=== PATIENT | male | born 2000 ===

== ENCOUNTER 2025-01-23 12:56 | Outpatient (AMB) | payer OTHER, SELFPAY ==
--- NOTE | 2025-01-22 14:05 | A.OFFPC_ITS ---
Vital Signs 01/23/25 13:10 Height 5 ft 8 in Weight 213 lb 4 oz BMI 32.4 BP 120/76 Blood Pressure Location Lt brachial Position Sitting Pulse 81 Pulse Source Pulse Oximeter Temp 97.7 F Temp Source Temporal Artery Scan Pulse Oximetry (%) 98 Oxygen Delivery Method Room Air Intake Visit Reasons: ED F/U Km General Claims Agent Required: No Accompanied by: Self / Same As Patient Allergies No Known Allergies Allergy (Verified 01/23/25 13:13) Medication List - Last Reconciled 02/04/25 by MIKEY Oneill cetirizine 10 mg PO DAILY doxycycline hyclate 100 mg PO BID famotidine 20 mg PO BID PRN pantoprazole 40 mg PO DAILY Tobacco use date assessed: 01/23/25 Dental Screening Dental Screen Date: 01/23/25 Did you have a dental visit in the last 12 months?: No Did you have a dental problem in the last 6 months where you did not have access to dental care?: No HPI HPI Comments History of Present Illness Details The patient is a 24-year-old male without significant PMH presenting as a new patient with a spider bite and subsequent wound infection. The incident occurred on a Wednesday night, with the patient noticing a bump on Wednesday morning. Initially, the condition seemed to improve throughout the day but worsened by the evening. The patient sought medical attention at [facility], where the wound was opened and a wick was placed to facilitate drainage. The patient was prescribed doxycycline for 14 days to manage the infection. The wound is located on the shoulder blade and spine area, and the patient reports tenderness in the region. The patient has been changing the dressing regularly and reports minimal drainage from the wound. There are no significant signs of infection currently, and the wound is expected to heal as long as it remains covered and the antibiotic course is completed. Patient was being seen prior at [facility]. Patient has been taking Pantopr azole and Famotidine and needs a refill [facility] Medical History (Updated 02/04/25 @ 23:29 by MIKEY Oneill) GERD (gastroesophageal reflux disease) MDD (major depressive disorder), recurrent episode, mild Obesity (BMI 30.0-34.9) Spider bite Family History (Updated 01/23/25 @ 13:15 by Maria Teresa Hudson MA) Mother No problems noted. Father No problems noted. Social History Housing: House Patient Tobacco Use Status: Never used Tobacco e-Cigarette/Vaping Use: Never Used service: No Current occupational status: unemployed Cognitive needs: No Hearing needs: No Vision needs: No Questionnaire PHQ-9 Over the last 2 weeks, how often have you been bothered by any of the following problems? 1. Little interest or pleasure in doing things: not at all 2. Feeling down, depressed, or hopeless: several days 3. Trouble falling or staying asleep, or sleeping too much: nearly every day (trouble falling asleep) 4. Feeling tired or having little energy: several days 5. Poor appetite or overeating: nearly every day (poor apepetite since he's been having the gerd) 6. Feeling bad about yourself - or that you are a failure or have let yourself or your family down: not at all 7. Trouble concentrating on things, such as reading the newspaper or watching television: not at all 8. Moving or speaking so slowly that other people could have noticed. Or the opposite - being so fidgety or restless that you have been moving around a lot more than usual: not at all 9. Thoughts that you would be better off or of hurting yourself in some way: not at all Total score: 8 Depression Screening Interpretation: Positive Depression Screening Follow-up: Follow-up Visit Requested Depression Screening Done: Yes Source: Developed by Drs. Otis Palmer, Peggy Kaminski, Panchito Ventura and colleagues, with an educational eliot from [employer] Thrive Questionnaire Date Thrive assessed: 01/23/25 I am a: Patient Within the past 12 months, did the food you bought not last and you didn't have the money to get more?: Never true Within the past 12 months, did you worry whether your food would run out before you got money to buy more?: Never true Do you have trouble paying for medicines?: No Do you have trouble getting transportation to medical appointments?: No Do you have trouble paying your heating and electricity bill?: No Do you have trouble taking care of your child, family member or friend?: No Do you have trouble with day-to-day activities such as bathing, preparing meals, shopping, managing finances, etc.?: No Are you currently unemployed and looking for a job?: No Are you interested in more education?: No THRIVE Score: 0 AUDIT C Alcohol Use Questionnaire (AUDIT-C) 1. How often do you have a drink containing alcohol?: Monthly or less 2. How many drinks containing alcohol do you have on a typical day when you are drinking?: 1 or 2 3. How often do you have six or more drinks on one occasion?: Less than monthly Total Score: 2 LINDSAY-7 AMB Questionnaire LINDSAY-7 Date LINDSAY - 7 assessed: 01/23/25 Feeling nervous, anxious, or on edge: 1 = Several days Not being able to stop or control worryin = Not at all Worrying too much about different things: 0 = Not at all Trouble relaxin = Not at all Being so restless that it is hard to sit still: 0 = Not at all Becoming easily annoyed or irritable: 0 = Not at all Feeling afraid as if something awful might happen: 0 = Not at all Total LINDSAY-7 score (0-4 normal; 5-9 mild; 10-14 moderate; 15-21 severe): 1 Source: Developed by Drs. Otis Palmer, Peggy Kaminski, Panchito Ventura and colleagues, with an educational eliot from [employer] Review of Systems Const Details: CONSTITUTIONAL No fever HEAD/NECK Negative RESPIRATORY Negative CARDIOVASCULAR Negative MUSCULOSKELETAL joint pains SKIN spider bite on posterior left shoulder NEUROLOGICAL Negative PSYCHIATRIC depression symptoms Physical exam (Primary Care) Vital Signs: Last Vital Signs Temp 97.7 F 01/23/25 13:10 Pulse 81 01/23/25 13:10 BP 120/76 01/23/25 13:10 Pulse Ox 98 01/23/25 13:10 Oxygen Delivery Method Room Air 01/23/25 13:10 BMI result Body Mass Index 32.4 GENERAL Well developed, obese, in no apparent distress HEENT Head-Normocephalic Neck- Supple, No lymphadenopathy, thyroid WNL RESPIRATORY Normal I:E, Clear to auscultation CARDIOVASCULAR Regular, rate and rhythm, No murmurs or rubs MUSCULOSKELETAL Joints- no swelling or deformity SKIN abscess on posterior left shoulder-wick removed. no drainage. NEUROLOGICAL Gait normal PSYCHIATRIC Oriented to person, place and time Mood and affect depressed Appearance WNL Speech WNL Thought processes WNL Tobacco/Smoking Status: Tobacco use Status Tobacco use date assessed 01/23/25 01/22/25 14:07 Patient Tobacco Use Status Never used Tobacco 01/22/25 14:07 e-Cigarette/Vaping Use Never Used 01/22/25 14:07 PHQ-9: PHQ-9 Score PHQ-9: Total score 8 01/23/25 13:17 Depression Screening Interpretation: Positive Depression Screening Follow-up: Follow-up Visit Requested Thrive Assessment: Date of Thrive Assessment Date Thrive assessed 01/23/25 01/22/25 14:07 Coding Level of Care Code New Pt New Pt Level 4 (91823) Patient Type New Diagnoses Spider bite T63.301A MDD (major depressive disorder), recurrent episode, mild F33.0 Obesity (BMI 30.0-34.9) E66.9 Gastroesophageal reflux disease without esophagitis K21.9 Esophagitis presence: without esophagitis Time Spent (min) 30 Comment Time spent on chart review, medication reconciliation, H&P, dressing change, patient ed Assessment & Plan Assessment & Plan (1) Spider bite: Code(s): T63.301A - Toxic effect of unspecified spider venom, accidental (unintentional), initial encounter Category: Medical Plan: The patient was advised to keep the wound covered and to complete the full course of doxycycline to prevent further infection. Follow-up in two months was recommended to assess healing and ensure no complications arise. (2) MDD (major depressive disorder), recurrent episode, mild: Code(s): F33.0 - Major depressive disorder, recurrent, mild Category: Medical Plan: Patient is connected with a counselor. Patient to follow up in 8 weeks or sooner if symptoms persist or worsen. (3) Obesity (BMI 30.0-34.9): Comment: BMI today was 32.4 Code(s): E66.9 - Obesity, unspecified Category: Medical Plan: Discussed the health risks of obesity with the patient. Reviewed benefits of e penelope moderate weight loss with the patient. Patient will gradually try and increase exercise to 30-40 min 5-7 times per week. We discussed they may need to break the exercise up into 2-3 sessions daily due to joint pain. We discussed the patient adding more fruits and vegetables to their diet. Will monitor weight and follow up in 8 weeks. (4) GERD (gastroesophageal reflux disease): Code(s): K21.9 - Gastro-esophageal reflux disease without esophagitis Category: Medical Qualifiers: Esophagitis presence: without esophagitis Qualified Code(s): K21.9 - Gastro-esophageal reflux disease without esophagitis Plan: Will refill Pantoprazole and Famotidine. Patient to follow up in 8 weeks or sooner if symptoms persist or worsen. Plan I discussed with the patient the importance of completing the doxycycline course to prevent further infection and advised keeping the wound covered until it heals completely. We also talked about the need for a follow-up appointment in two months to monitor the wound's healing progress and ensure no complications arise. Medications: New pantoprazole 40 mg PO DAILY 90 tabs 1RF for acid famotidine 20 mg PO BID PRN 180 tabs 1RF indigestion Patient Instructions: - Keep the wound covered until it heals completely. - Complete the full course of doxycycline as prescribed. - Change the dressing regularly and monitor for signs of swelling or redness. - Schedule a follow-up appointment in two months.
[2025-01-23 13:10] VITALS: BP 120/76; PULSE 81; TEMP 36.5; O2SAT 98; BMI 32.4
--- OUTSIDE RECORDS SUMMARY | 2025-01-23 15:38 | XMS_ITS ---
Author Name [facility] Organization Unknown Encounters Encounter Type Encounter Reason Primary Diagnosis Location Date Emergency QUESTION OF ABSCESS ON STOMACH QUESTION OF ABSCESS ON STOMACH [facility] 02/29/2024 Care Team Organization Name Specialty Phone Email Start Date End Da te [facility] remember,Patient Primary Care 03/27/20242024 [facility] Patient remember Primary Care 02/29/2024
== END 2025-01-23 13:31 | disposition home or self-care (01) ==
LOC: HO.HMCHD 12:56
PROVIDERS: PCP Physician Assistant Medical; Visit Provider Physician Assistant Medical
DX: T63.301A Toxic effect of unspecified spider venom, accidental (unintentional), initial encounter (principal); F33.0 Major depressive disorder, recurrent, mild; E66.9 Obesity, unspecified; K21.9 Gastro-esophageal reflux disease without esophagitis

== ENCOUNTER → 2025-01-23 12:56 | Outpatient (BNVA) | payer OTHER, SELFPAY | PROVIDERS: PCP Physician Assistant; Visit Provider Physician Assistant Medical | DX: Z09 Encounter for follow-up examination after completed treatment for conditions other than malignant neoplasm (principal); F33.0 Major depressive disorder, recurrent, mild; K21.9 Gastro-esophageal reflux disease without esophagitis; E66.9 Obesity, unspecified; T63.301A Toxic effect of unspecified spider venom, accidental (unintentional), initial encounter | CPT/HCPCS: 99202 ==

== ENCOUNTER 2025-02-13 15:27 | Outpatient (AMB) | payer OTHER, SELFPAY ==
--- NOTE | 2025-02-13 15:33 | A.OFFPC_ITS ---
Vital Signs 02/13/25 15:34 Height 5 ft 8 in Weight 207 lb 4 oz BMI 31.5 BP 126/82 Blood Pressure Location Rt brachial Position Sitting Pulse 96 Pulse Source Pulse Oximeter Temp 97.4 F Temp Source Temporal Artery Scan Pulse Oximetry (%) 98 Oxygen Delivery Method Room Air Intake Visit Reasons: Acid reflux Straddle Truck Driver Required: No Accompanied by: Self / Same As Patient Allergies No Known Allergies Allergy (Verified 02/13/25 15:34) Medication List - Last Reconciled 02/13/25 by MIKEY Oneill famotidine 20 mg PO BID PRN levocetirizine 5 mg PO DAILY pantoprazole 40 mg PO DAILY Tobacco use date assessed: 02/13/25 Dental Screening Dental Screen Date: 02/13/25 Did you have a dental visit in the last 12 months?: No Did you have a dental problem in the last 6 months where you did not have access to dental care?: No HPI HPI Comments History of Present Illness Details The patient is a 24-year-old male with GERD, MDD/Anxiety, AR adn obesity presenting for evaluation of persistent acid reflux symptoms and a request for referrals. He reports experiencing acid reflux since late October or early December, which is no longer controlled by his Pantoprazole and Famotidine. His symptoms have progressed to mainly affect his throat, causing a globus sensation, dryness, increased saliva, and esophageal spasms with very hot or cold liquids. Associated symptoms include trapped gas, abdominal pain and intermittent diarrhea. He has also recently experienced episodes where his face becomes hot with red, non-pruritic blotches on the forehead that spread and become itchy elsewhere, accompanied by a burning sensation and facial tightness. He denies a history of eczema as a baby but recalls a similar issue affecting his ears a couple of years ago. For allergies, the patient has been taking cetirizine since last year and has recently developed sinus pressure without rhinorrhea. A previous wound, spider bite on posterior shoulder has healed well, leaving some residual hyperpigmentation, and is not draining. Medical History: - Acid reflux, since approximately . - Allergic rhinitis - History of rash on ears a few years pr ior. [facility] Medical History (Updated 02/13/25 @ 16:30 by MIKEY Oneill) Abdominal pain Allergic rhinitis Anxiety GERD (gastroesophageal reflux disease) MDD (major depressive disorder), recurrent episode, mild Obesity (BMI 30.0-34.9) Spider bite Thyromegaly Family History Mother No problems noted. Father No problems noted. Social History Housing: House Patient Tobacco Use Status: Never used Tobacco e-Cigarette/Vaping Use: Never Used service: No Current occupational status: unemployed Cognitive needs: No Hearing needs: No Vision needs: No Questionnaire PHQ-9 Over the last 2 weeks, how often have you been bothered by any of the following problems? 1. Little interest or pleasure in doing things: not at all 2. Feeling down, depressed, or hopeless: nearly every day (anxiety is daily) 3. Trouble falling or staying asleep, or sleeping too much: not at all 4. Feeling tired or having little energy: not at all 5. Poor appetite or overeating: several days (poor appetite) 6. Feeling bad about yourself - or that you are a failure or have let yourself or your family down: not at all 7. Trouble concentrating on things, such as reading the newspaper or watching television: not at all 8. Moving or speaking so slowly that other people could have noticed. Or the opposite - being so fidgety or restless that you have been moving around a lot more than usual: not at all 9. Thoughts that you would be better off or of hurting yourself in some way: not at all Total score: 4 Depression Screening Interpretation: Negative (Patient would like referral for counseling) Depression Screening Done: Yes Source: Developed by Drs. Otis Palmer, Peggy Kaminski, Panchito Ventura and colleagues, with an educational eliot from [employer]. Thrive Questionnaire Date Thrive assessed: 02/13/25 I am a: Patient Within the past 12 months, did the food you bought not last and you didn't have the money to get more?: Never true Within the past 12 months, did you worry whether your food would run out before you got money to buy more?: Never true Do you have trouble paying for medicines?: No Do you have trouble getting transportation to medical appointments?: No Do you have trouble paying your heating and electricity bill?: No Do you have trouble taking care of your child, family member or friend?: No Do you have trouble with day-to-day activities such as bathing, preparing meals, shopping, managing finances, etc.?: No Are you currently unemployed and looking for a job?: No Are you interested in more education?: No THRIVE Score: 0 AUDIT C Alcohol Use Questionnaire (AUDIT-C) 1. How often do you have a drink containing alcohol?: Never 3. How often do you have six or more drinks on one occasion?: Never Total Score: 0 LINDSAY-7 AMB Questionnaire LINDSAY-7 Date LINDSAY - 7 assessed: 02/13/25 Feeling nervous, anxious, or on edge: 3 = Nearly every day Not being able to stop or control worryin = Not at all Worrying too much about different things: 1 = Several days Trouble relaxin = Not at all Being so restless that it is hard to sit still: 0 = Not at all Becoming easily annoyed or irritable: 0 = Not at all Feeling afraid as if something awful might happen: 0 = Not at all Total LINDSAY-7 score (0-4 normal; 5-9 mild; 10-14 moderate; 15-21 severe): 4 Source: Developed by Drs. Otis Palmer, Peggy Kaminski, Panchito Ventura and colleagues, with an educational eliot from [employer]. Review of Systems Narrative - General: Denies fever. - HEENT: Reports a sensation of a lump in his throat, dry throat, and sinus pressure. - Denies rhinorrhea. - Skin: Reports recent onset of facial flushing with hot, red, and sometimes itchy blotches on his forehead and face. - Respiratory: Reports feeling short of breath, especially when talking. - Gastrointestinal: Reports acid reflux, abdominal pain, trapped gas, and diarrhea. - Reports esophageal spasm with very hot or cold liquids. Physical exam (Primary Care) Vital Signs: Last Vital Signs Temp 97.4 F 02/13/25 15:34 Pulse 96 02/13/25 15:34 BP 126/82 02/13/25 15:34 Pulse Ox 98 02/13/25 15:34 Oxygen Delivery Method Room Air 02/13/25 15:34 BMI result Body Mass Index 31.5 GENERAL Well developed, obese, in no apparent distress HEENT Head-Normocephalic Eyes- PERRLA, EOMI, Conjuctiva clear, lids WNL Ears- Canals clear, TMs WNL Mouth/Throat-fullness in throat Neck- Supple, No lymphadenopathy, thyroid enlarged, no nodules RESPIRATORY Normal I:E, Clear to auscultation CARDIOVASCULAR Regular, rate and rhythm, No murmurs or rubs GASTROINTESTINAL Soft, nontender, normal bowel sounds, no masses NEUROLOGICAL Gait normal PSYCHIATRIC Oriented to person, place and time Mood and affect- Depressed and anxious Appearance WNL Speech WNL Thought processes WNL Tobacco/Smoking Status: Tobacco use Status Tobacco use date assessed 02/13/25 02/13/25 15:35 Patient Tobacco Use Status Never used Tobacco 02/13/25 15:35 e-Cigarette/Vaping Use Never Used 02/13/25 15:35 PHQ-9: PHQ-9 Score PHQ-9: Total score 4 02/13/25 15:42 Depression Screening Interpretation: Negative (Patient would like referral for counseling) Thrive Assessment: Date of Thrive Assessment Date Thrive assessed 02/13/25 02/13/25 15:35 Coding Level of Care Code Established Pt Est Pt Level 4 (50662) Patient Type Established Diagnoses Gastroesophageal reflux disease without esophagitis K21.9 Esophagitis presence: without esophagitis Thyromegaly E01.0 Allergic rhinitis J30.9 MDD (major depressive disorder), recurrent episode, mild F33.0 Anxiety F41.9 Obesity (BMI 30.0-34.9) E66.9 Time Spent (min) 35 Comment Time spent on H&P, medication reconciliation, patient education and orders Assessment & Plan Assessment & Plan (1) GERD (gastroesophageal reflux disease): Code(s): K21.9 - Gastro-esophageal reflux disease without esophagitis Category: Medical Qualifiers: Esophagitis presence: without esophagitis Qualified Code(s): K21.9 - Gastro-esophageal reflux disease without esophagitis Plan: To further evaluate the patient's reflux symptoms, a referral will be placed to gastroenterology. It is anticipated that an endoscopy will be required to assess the esophagus. Patient will continue current medications. Will monitor. Patient will follow up in 6 weeks (2) Thyromegaly: Code(s): E01.0 - Iodine-deficiency related diffuse (endemic) goiter Category: Medical Plan: Due to the finding of an enlarged thyroid, which could be contributing to the patient's throat symptoms and shortness of breath, further investigation is warranted. An order will be placed for general blood work, including thyroid function tests and a complete blood count. A request for a thyroid ultrasound will also be submitted to radiology for further visualization. A referral to an petroleum refining equipment operator is not indicated at this time, pending the results of this workup. Patient to follow up in 6 weeks or sooner if symptoms persist or worsen. (3) Allergic rhinitis: Code(s): J30.9 - Allergic rhinitis, unspecified Category: Medical Plan: As long-term use of the same antihistamine can lead to decreased efficacy, the patient's current medication, cetirizine, will be changed. A new prescription for levocetirizine will be sent to the pharmacy to trial for better management of potential allergy symptoms. Patient to follow up in 6 weeks or sooner if symptoms persist or worsen. (4) MDD (major depressive disorder), recurrent episode, mild: Code(s): F33.0 - Major depressive disorder, recurrent, mild Category: Medical Plan: Will refer for counseling (5) Anxiety: Code(s): F41.9 - Anxiety disorder, unspecified Category: Medical Plan: Will refer for counseling. (6) Obesity (BMI 30.0-34.9): Comment: BMI today was 31.5 Code(s): E66.9 - Obesity, unspecified Category: Medical Plan: Discussed the health risks of obesity with the patient. Reviewed benefits of even moderate weight loss with the patient. Patient will gradually try and increase exercise to 30-40 min 5-7 times per week. We discussed the patient adding more fruits and vegetables to their diet. Will monitor weight and follow up in 3 months. Plan I have explained to the patient the plan to investigate his multiple symptoms. We will proceed with a referral to Gastroenterology for his reflux, as he will likely need an endoscopy. I ordered a thyroid ultrasound and blood work to assess his enlarged thyroid, as this could be the cause of his throat symptoms and shortness of breath, and may lead to a referral to Endocrinology. I advised holding off on an ENT referral for now. We also discussed changing his allergy medication to levocetirizine for better symptom control. A follow-up appointment is recommended in six weeks to review results and progress. Orders: Orders Comprehensive Met. Panel Today R10.9 - Unspecified abdominal pain TSH reflex Free T4 Today E01.0 - Iodine-deficiency related diffuse (endemic) goiter US thyroid Today E01.0 - Iodine-deficiency related diffuse (endemic) goiter Complete Blood Count no Diff Today E66.9 - Obesity, unspecified, F41.9 - Anxiety disorder, unspecified, J02.9 - Acute pharyngitis, unspecified Referrals Gastroenterology Referral K21.9 - Gastro-esophageal reflux disease without esophagitis Medications: New levocetirizine 5 mg PO DAILY 90 tabs 1RF for allergies Patient Instructions: - Go to the hospital to have your blood work done. - Radiology will call you to schedule your thyroid ultrasound. - The plastic parts fabricator trimmer's office will call you to schedule an appointment. - A new prescription for an allergy medication called levocetirizine will be sent to your pharmacy. - Please book a follow-up appointment at the front desk monitor for about six weeks from now.
[2025-02-13 15:34] VITALS: BP 126/82; PULSE 96; TEMP 36.3; O2SAT 98; BMI 31.5
--- OUTSIDE RECORDS SUMMARY | 2025-02-13 18:12 | XMS_ITS | Clinical Summary ---
Author Organization [facility] Address [address] [place] [address] Care Team Providers Care Air Hammer Operator Name Role Phone Marii Campos PA-C Primary Care Provider Source Comments PLEASE NOTE, if this patient is a minor, it may be UNLAWFUL to discuss sensitive information that is contained in these records (such as FAMILY PLANNING, MENTAL HEALTH or SUBSTANCE ABUSE) with the minor patient's parent or other person without the patient's specific authorization.[facility] Allergies No known active allergies Medications pantoprazole (PROTONIX) 20 mg EC tabletIndicatio ns:Epigastric pain Take 20 mg by mouth once daily. 5 Active famotidine (PEPCID) 20 mg tabletIndicatio ns:Epigastric pain TAKE 1 TABLET BY MOUTH TWICE A DAY NEEDED FOR INDIGESTION 5 Active lansoprazole (PREVACID) [address] capsuleIndicati ons:Epigastric pain Take 1 Capsule by mouth 2 (two) times daily. 180 Capsule 1 5 Active Active Problems No known active problems Encounters Date Type Department Care Team Description 12/30/2024 10:40 AM EDT Office Visit [address] [phone] Marii Campos PA-C from Last 3 Months Social History Tobacco Use Types Packs/Day Years Used Date Smoking Tobacco: Never Passive Smoke Exposure: Never Smokeless Tobacco: Never Tobacco Cessation:Counseling Given: Yes Sex and Gender Information Value Date Recorded Sex Assigned at Male 12/30/2024 7:40 AM PDT Legal Sex Male 7:06 AM PDT Gender Identity Male 12/30/2024 7:40 AM PDT Sexual Orientation Straight 12/30/2024 7: 40 AM PDT Last Filed Vital Signs Vital Sign Reading Time Taken Comments Blood Pressure 128/86 12/30/2024 10:39 AM EDT Pulse 73 12/30/2024 10:39 AM EDT Temperature 37.2 C (98.9 F) 12/30/2024 10:39 AM EDT Respiratory Rate 18 12/30/2024 10:39 AM EDT Oxygen Saturation - - Inhaled Oxygen Concentration - - Weight 99.3 kg (219 lb) 12/30/2024 10:39 AM EDT Height 170.2 cm (5' 7 ) 12/30/2024 10:39 AM EDT Body Mass Index 34.3 12/30/2024 10:39 AM EDT Plan of Treatment Health Maintenance Due Date Last Done Comments Anxiety Screening 2000 HIV Screening 2015 Medicare Annual Wellness Visit 2018 Imm-DTaP/Tdap/Td (7 - Td or Tdap) 06/22/2022 06/22/2012, 02/26/2006, 07/02/2004, Additional history exists Alcohol and Drug Screen 04/12/2024 Depression Annual Screen 04/12/2024 [id number] ( season) 12/11/20242 021, 10/15/2020 Imm-Influenza (#1) 2024 02/18/2021, 1 04/18/2016, 01/09/2014, Additional history exists Hypertension Screening (#1) 12/30/2025 Tobacco Screening 12/30/2025 12/30/2024 Diabetes Screening 01/03/2026 01/03/2025, 0 09/14/2024, 02/02/2024 Lipid Screening 01/04/2028 01/03/2025, 09/14/2024 Imm-Hepatitis B Completed 08/01/2001, 04/2000, 2000 Imm-Varicella Completed 05/25/2008, 08/02/2001 Imm-HPV Completed 03/13/2016, 12/13, 06/22/2012 Hepatitis C Screening Completed 01/03/2025 Procedures Procedure Name Priority Date/Time Associated Diagnosis Comments ASSAY OF LIPASE Routine 01/03/2025 9:55 AM EDT Epigastric pain Early satiety Unintended weight loss Functional diarrhea ASSAY OF AMYLASE Routine 01/03/2025 9:55 AM EDT Epigastric pain Early satiety Unintended weight loss Functional diarrhea H PYLORI UREA BREATH TEST Routine 01/03/2025 9:55 AM EDT Epigastric pain Early satiety Unintended weight loss Functional diarrhea HEPATITIS B SURFACE AG, EIA WITH REFLEX CONFIRM Routine 01/03/2025 9:55 AM EDT Epigastric pain Early satiety Unintended weight loss Functional diarrhea HEPATITIS C AB W/RFLX HCV RNA, QT, RT PCR Routine 01/03/2025 9:55 AM EDT Epigastric pain Early satiety Unintended weight loss Functional diarrhea BLOOD COUNT COMPLETE AUTO&AUTO DIFRNTL WBC Routine 01/03/2025 9:55 AM EDT Epigastric pain Early satiety Unintended weight loss Functional diarrhea COMPREHENSIVE METABOLIC PANEL Routine 01/03/2025 9:55 AM EDT Epigastric pain Early satiety Unintended weight loss Functional diarrhea LIPID PANEL Routine 01/03/2025 9:55 AM EDT Epigastric pain Early satiety Unintended weight loss Functional diarrhea TSH W/RFLX FREE T4 Routine 01/03/2025 9: 55 AM EDT Epigastric pain Early satiety Unintended weight loss Functional diarrhea from Last 3 Months Results * HEPATITIS C AB W/RFLX HCV RNA, QT, RT PCR Routine (01/03/2025 9:55 AM EDT) HEPATITIS C ANTIBODY NON-REACT RICHARD NON-REACT RICHARD 01/04/2025 6:35 PM EDT [facility] Blood Blood / Unknown 01/03/2025 9 :55 AM EDT 01/04/2025 5:00 PM EDT Narrative [facility] - 01/04/2025 6:47 PM EDT FASTING:YES . HCV antibody was non-reactive. There is no laboratory evidence of HCV infection. . In most cases, no further action is required. However, if recent HCV exposure is suspected, a test for HCV RNA (test code 27368) is suggested. . For additional information please refer to http://Flowdock.Preo/faq/YHU60c3 (This link is being provided for informational/ educational purposes only.) . Marii JENSEN-C LAB - BLOOD DRAW Final Resul t Performing Organization Address [facility] Co de Phone Number [employer] [address] [place] [address], [employer] [address] * TSH W/RFLX FREE T4 Routine (01/03/2025 9:55 AM EDT) TSH W/REFLEX TO FT4 4.49 0.40 - 4.50 mIU/L 01/04/2025 6:20 PM EDT [employer] [facility] Blood Blood / Unknown 01/03/2025 9 :55 AM EDT 01/04/2025 5:00 PM EDT Narrative [employer] - 01/04/2025 6:24 PM EDT FASTING:YES Marii Andres JENSEN-C LAB - BLOOD DRAW Final Resul t Performing Organization Address [facility] de Phone Number [employer] [address] [place] [address], [address] [address] * HEPATITIS B SURFACE AG, EIA WITH REFLEX CONFIRM Routine (01/03/2025 9:55 AM EDT) HEPATITIS B SURFACE ANTIGEN NON-REACT RICHARD NON-REACT RICHARD 01/06/2025 10:02 PM EDT [facility] Blood Blood / Unknown 01/03/2025 9 :55 AM EDT 01/04/2025 5:00 PM EDT Narrative [employer] - 01/06/2025 10:10 PM EDT FASTING:YES . For additional information, please refer to http://Flowdock.Preo/faq/BYM019 (This link is being provided for informational/ educational purposes only.) . us Marii Campos PA-C LAB - BLOOD DRAW Final Resul t [employer] [facility] [address] [address], [facility] [address] [place] [address] * (ABNORMAL) BLOOD COUNT COMPLETE AUTO&AUTO DIFRNTL WBC Routine (01/03/2025 9:55 AM EDT) [facility] WHITE BLOOD CELL COUNT 10.8 3.8 - 10.8 Thousand/ uL 01/04/2025 7:32 AM EDT [facility] RED BLOOD CELL COUNT 5.47 4.20 - 5.80 Million/u L 01/04/2025 7:32 AM EDT [facility] HEMOGLOBIN 15.5 13.2 - 17.1 g/dL 01/04/2025 7:32 AM EDT [facility] HEMATOCRIT 47.7 38.5 - 50.0 % 01/04/2025 7:32 AM EDT [facility] MCV 87.2 80.0 - 100.0 fL 01/04/2025 7:32 AM EDT [facility] MCH 28.3 27.0 - 33.0 pg 01/04/2025 7:32 AM EDT [facility] MCHC 32.5 32.0 - 36.0 g/dL 01/04/2025 7:32 AM EDT [facility] RDW 12.9 11.0 - 15.0 % 01/04/2025 7:32 AM EDT [facility] PLATELET COUNT 343 140 - 400 Thousand/ uL 01/04/2025 7:32 AM EDT [facility] MPV 11.3 7.5 - 12.5 fL 01/04/2025 7:32 AM EDT [facility] ABSOLUTE NEUTROPHILS 4,741 1,500 - 7,800 cells/uL 01/04/2025 7:32 AM EDT [facility] ABSOLUTE LYMPHOCYTES 4,979(H) 850 - 3,900 cells/uL 01/04/2025 7:32 AM EDT [facility] ABSOLUTE MONOCYTES 734 200 - 950 cells/uL 01/04/2025 7:32 AM EDT [facility] ABSOLUTE EOSINOPHILS 313 15 - 500 cells/uL 01/04/2025 7:32 AM EDT [facility] ABSOLUTE BASOPHILS 32 0 - 200 cells/uL 01/04/2025 7:32 AM EDT [facility] NEUTROPHILS PCT 43.9 % 7:32 AM EDT [facility] LYMPHOCYTES 46.1 % 01/04/2025 7:32 AM EDT [facility] MONOCYTES 6.8 % 01/04/2025 7:32 AM EDT [facility] EOSINOPHILS 2.9 % 01/04/2025 7:32 AM EDT [facility] BASOPHILS 0.3 % 01/04/2025 7:32 AM EDT [facility] Blood Blood / Unknown 01/03/2025 9 :55 AM EDT 01/04/2025 7:15 AM EDT [employer] [facility] - 01/04/2025 7:35 AM EDT FASTING:YES For adults, a slight decrease in the calculated MCHC value (in the range of 30 to 32 g/dL) is most likely not clinically significant; however, it should be interpreted with caution in correlation with other red cell parameters and the patient's clinical condition. us Marii Campos PA-C LAB - BLOOD DRAW Final Resul t [facility] [address] [address], [facility] [address] [address] * ASSAY OF LIPASE Routine (01/03/2025 9:55 AM EDT) LIPASE 34 7 - 60 U/L 01/04/2025 7:27 PM EDT [facility] Blood Blood / Unknown 01/03/2025 9 :55 AM EDT 01/04/2025 2:02 PM EDT [employer] [facility] - 01/04/2025 7:28 PM EDT FASTING:YES us Marii Campos PA-C LAB - BLOOD DRAW Final Resul t Performing Organization Address [facility]ZIP Co de Phone Number [facility] [address] [address], [employer] [address] [address] * H PYLORI UREA BREATH TEST OTHER BREATH Routine (01/03/2025 9:55 AM EDT) RESULT NOT DETECTED NOT DETECTED 01/04/2025 1:41 PM EDT [facility] BREATH Topography unknown / Unknown 01/03/2025 9:55 AM EDT 01/04/2025 1:36 PM EDT Narrative [employer] [facility] - 01/04/2025 1:53 PM EDT FASTING:YES . Antimicrobials, proton pump inhibitors, and bismuth preparations are known to suppress H. pylori, and ingestion of these prior to H. pylori diagnostic testing may lead to false negative results. If clinically indicated, the test may be repeated on a new specimen obtained two weeks after discontinuing treatment. However, a positive result is still clinically valid. us Marii Campos PA-C LAB - MICROBIOLOGY AMBULATOR Y Final Result Performing Organization Address [facility] Co de Phone Number [facility] [address] [address], [employer] [address] * ASSAY OF AMYLASE Routine (01/03/2025 9:55 AM EDT) AMYLASE 33 21 - 101 U/L 01/04/2025 7:27 PM EDT [facility] Blood Blood / Unknown 01/03/2025 9 :55 AM EDT 01/04/2025 2:02 PM EDT Narrative [employer] [facility] - 01/04/2025 7:28 PM EDT FASTING:YES us Marii Campos PA-C LAB - BLOOD DRAW Final Resul t Performing Organization Address [facility]/ZIP Co de Phone Number [facility] [address] [address], [employer] [address] * (ABNORMAL) LIPID PANEL Routine (01/03/2025 9:55 AM EDT) CHOLESTEROL, TOTAL 203(H) <200 mg/dL 01/04/2025 7:27 PM EDT [facility] HDL CHOLESTEROL 34(L) > OR = 40 mg/dL 01/04/2025 7:27 PM EDT [facility] TRIGLYCERIDES 154(H) <150 mg/dL 01/04/2025 7:27 PM EDT [facility] LDL-CHOLESTEROL 140(H) mg/dL (calc) 01/04/2025 7:27 PM EDT [facility] CHOL/HDLC RATIO 6.0(H) <5.0 (calc) 01/04/2025 7:27 PM EDT [facility] NON-HDL CHOLESTEROL 169(H) <130 mg/dL (calc) 01/04/2025 7:27 PM EDT [facility] Blood Blood / Unknown 01/03/2025 9 :55 AM EDT 01/04/2025 2:02 PM EDT Narrative [facility] - 01/04/2025 7:28 PM EDT FASTING:YES Reference range: <100 . Desirable range <100 mg/dL for primary prevention; <70 mg/dL for patients with CHD or diabetic patients with > or = 2 CHD risk factors. . LDL-C is now calculated using the Aba-Onelia calculation, which is a validated novel method providing better accuracy than the Friedewald equation in the estimation of LDL-C. Aba MOSQUERA et al. KATJA. 2013;310(19): 8164-4808 (http://education.CRITICAL TECHNOLOGIES.[employer]/faq/NPR290) For patients with diabetes plus 1 major ASCVD risk factor, treating to a non-HDL-C goal of <100 mg/dL (LDL-C of <70 mg/dL) is considered a therapeutic option. us Marii JENSEN-C LAB - BLOOD DRAW Final Resul t [facility] [address] [address], [employer] [address] [address] * (ABNORMAL) COMPREHENSIVE METABOLIC PANEL Routine (01/03/2025 9:55 AM EDT) [facility] GLUCOSE 89 65 - 99 mg/dL 01/04/2025 7:27 PM EDT [facility] UREA NITROGEN (BUN) 11 7 - 25 mg/dL 01/04/2025 7:27 PM [employer] [facility] CREATININE (blood) 1.14 0.60 - 1.24 mg/dL 01/04/2025 7:27 PM EDT [facility] EGFR 92 > OR = 60 mL/min/1. 73m2 01/04/2025 7:27 PM EDT [facility] BUN/CREATININE RATIO SEE NOTE: 6 - 22 (calc) 01/04/2025 7:27 PM [employer] [facility] SODIUM 140 135 - 146 mmol/L 01/04/2025 7:27 PM [employer] [facility] POTASSIUM 4.3 3.5 - 5.3 mmol/L 01/04/2025 7:27 PM [employer] [facility] CHLORIDE 104 98 - 110 mmol/L 01/04/2025 7:27 PM [employer] [facility] CARBON DIOXIDE 27 20 - 32 mmol/L 01/04/2025 7:27 PM [employer] [facility] CALCIUM 10.6(H) 8.6 - 10.3 mg/dL 01/04/2025 7:27 PM [employer] [facility] PROTEIN, TOTAL 8.0 6.1 - 8.1 g/dL 01/04/2025 7:27 PM [employer] [facility] ALBUMIN 5.2(H) 3.6 - 5.1 g/dL 01/04/2025 7:27 PM [employer] [facility] GLOBULIN 2.8 1.9 - 3.7 g/dL (calc) 01/04/2025 7:27 PM [employer] [facility] ALBUMIN/GLOBULI N RATIO 1.9 1.0 - 2.5 (calc) 01/04/2025 7:27 PM [employer] [facility] BILIRUBIN, TOTAL 0.5 0.2 - 1.2 mg/dL 01/04/2025 7:27 PM [employer] [facility] ALKALINE PHOSPHATASE 63 36 - 130 U/L 01/04/2025 7:27 PM EDT [employer] [facility] AST 37 10 - 40 U/L 01/04/2025 7:27 PM EDT [employer] [facility] [facility] ALT 104(H) 9 - 46 U/L 01/04/2025 7:27 PM EDT [employer] [facility] Blood Blood / Unknown 01/03/2025 9 :55 AM EDT 01/04/2025 2:02 PM EDT Narrative [facility] [facility] - 01/04/2025 7:28 PM EDT FASTING:YES . Fasting reference interval . Not Reported: BUN and Creatinine are within reference range. . Marii Campos PA-C LAB - BLOOD DRAW Final Resul t [facility] [employer] [address] [address], [facility] [address] [place] [address] from Last 3 Months Insurance [employer] Member Subscriber Plan / Payer (Ef fective 2025-Present) Name:Bladimir García I Relation to Subscriber:Self Name:Bladimir García I Payer ID:[id number] Group ID:Not on file Type:Medicaid Address: [facility] [address] [place] [address] Care Teams Air Hammer Operator Relationship Specialty Start Date End Date Marii Campos PA-C [address] [place] [address] PCP - General Internal Medicine 01/24/25
--- OUTSIDE RECORDS SUMMARY | 2025-02-13 18:12 | XMS_ITS | Clinical Summary ---
Author Organization [facility] Address [address] [place] [phone] Phone Care Team Providers Care Dry Paste Supervisor Name Role Phone Marii Campos Primary Care Provider [phone] Allergies Active Allergy Reactions Criticality Noted Date Comments Other 08/12/2017 Pollen Extracts 03/06/2024 Medications EPINEPHrine (EPIPEN) 0.3 mg/0.3 mL injection INJECT 1 PEN INTO THE MUSCLE NEEDED FOR OTHER (ANAPHYLACT IC REACTION) 2 each 3 06/22/2024 Active Active Problems Problem Noted Date Diagnosed Date Prediabetes 09/12/2024 Metabolic dysfunction-associ ated steatotic liver disease (MASLD) 09/12/2024 Class 1 obesity due to exces s calories with serious comorbidity and body mass index (BMI) of 34.0 to 34.9 in adult 09/12/2024 Encounters Date Type Department Care Team Description 01/01/2025 Telephone Gastroenterology [facility] [address] [facility] [address] [facility] [address] [place] [address] Edgar Sanchez MD 12/18/2024 Telephone Adult Medicine [address] [phone] Devendra Carranza MD 12/08/2024 10:08 PM EDT - 12/08/2024 10:30 PM EDT Emergency [facility] [address] [place] [address] Strep throat (Primary Dx) Discharge Disposition: Home or Self Care from Last 3 Months Immunizations Immunization Administration Dates Next Due DTaP (Infanrix) 6wks to less than 7yo ,07/02/2004,2000,09/10,2000 KDbR-LOY-DHP (Pentacel) 2mo to less than 5yo 08/02/2001,2000,2000 H1N1 Inj Preservative Free 02/22/2009 HPV, Quadrivalent 03/13/2016,01/09/2014,06/23/19 13 Hepatitis A Pediatric (Havri x; Vaqta) 12mo to less than 19yo 06/22/2012 Hepatitis A Vaccine, Pediatr ic Dosage, Unspecified Formulation 09/23/2010 Hepatitis B Pediatric (Enger ix B; Recombivax HB) to less than 20 yo 08/01/2001,2000,2000 Hib (HbOC) 08/02/2001,2000,2000 IPV Inactivated polio (Ipol) 6wks and older 07/02/2004,2000,2000 Influenza Quadravalent, MDCK , 0.5ml, preservative free (Flucelvax) 6mo and older 02/18/2021 Influenza trivalent, 0.5mL, preservative free (Fluarix; FluLaval; Fluzone) ages 6mo and older (Afluria) 3 years and older 02/16/2017 Influenza trivalent, with pr eservative (Fluzone; Afluria) 6mo and older 01/09/2014,07/05/2013,06/22/2012,03/02,02/22/2009 MMR, measles mumps and rubel la Live (Priorix; M-M-R II) 12mo and older 07/02/2004,05/03/2001 Meningococcal MCV4P 04/21/2017 Meningococcal, Unspecified 06/22/2012 Novel [id number] 02/22/2009 Pfizer SARS-CoV-2 COVID-19, mRNA, LNP-S, preservative free 11/05/2020,10/15/2020 Pneumococcal Conjugate Vacci ne, 7 Valent 2000,2000,2000 Tdap Tetanus diptheria acell ular pertussis (Boostrix; Adacel) 7yo and older 06/22/2012 Varicella live (Varivax) 12m o and older 05/25/2008,08/02/2001 Surgical History Surgery Date Site/Laterality Comments OTHER SURGICAL HISTORY PROCEDURE: DENIES PREVIOUS SURGERY Medical History Medical History Date Comments Seasonal allergies 01/28/2017 DX:Seasonal a llergies; COMMENT: 02/12/16 pollen H/O fracture of clavicle 2005 DX:H/O fracture of clavicle; COMMENT: Left. 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 03/12/15 pain in area. Xrays ordered. 04/28/15 PT ordered History of behavioral proble m as a child 04/21/2017 DX:History of behavioral pro blem as a child; COMMENT: Seroquel, Zoloft, Abilify in the past, anxiety. Better now Patellar tendinitis 04/27/2017 DX:Patellar tendinitis; COMMENT: 03/25/17 [facility] Also back pain. NSAIDs DU 1 M , ref to PT. 04/28/17 [facility] labs neg, PT , FU in 2 M Sleep disorder 04/21/2017 DX:Sleep disorde r; COMMENT: Clonidine in the past Concussion 01/05/2019 DX:Concussion; C OMMENT: /01/18/17, 07/27/18 IBS (irritable bowel syndrome) D X:IBS (irritable bowel syndrome) Abdominal cramping DX:Abdominal cramping Passage of loose stools DX:Passa ge of loose stools Food allergy DX:Food allergy Mixed hyperlipidemia 11/10/2022 DX:Mixed hy perlipidemia Family History Medical History Relation Name Comments Depression Aunt SLE Blindness Brother Other: Autism Brother Learning probl ems Other: Prematurity Brother Other: stabismus/lazy eye Brother Diabetes Maternal Grandfather Glaucoma Maternal Grandfather Heart failure Maternal Grandfather Stroke Maternal Grandfather Diabetes Maternal Grandmother Thyroid disease Maternal Grandmother Other: fibromyalgia Mother Other: MELVIN Other cousin Cataracts Neg Hx Macular degeneration Neg Hx Strabismus Neg Hx Relation Name Status Comments Aunt Brother Maternal Grandfather Maternal Grandmother Mother Other cousin Alive Social History Tobacco Use Types Packs/Day Years Used Date Smoking Tobacco: Never Smokeless Tobacco: Never Tobacco Cessation:Counseling Given: Not Answered Alcohol Use Standard Drinks/Week Comments No 0 (1 standard drink = 0.6 oz pur e alcohol) Sex and Gender Information Value Date Recorded Sex Assigned at Not on file Legal Sex Male 10:47 PM EST Gender Identity Not on file Sexual Orientation Not on file Obstetrics History Last Filed Vital Signs Vital Sign Reading Time Taken Comments Blood Pressure 128/71 12/08/2024 9:00 PM EDT Pulse 88 12/08/2024 9:00 PM EDT Temperature 36.2 C (97.1 F) 12/08/2024 9:00 PM EDT Respiratory Rate 16 12/08/2024 9:00 PM EDT Oxygen Saturation 100% 12/08/2024 9:00 PM EDT Inhaled Oxygen Concentration - - Weight 102 kg (224 lb) 12/08/2024 9:00 PM EDT Height 170.2 cm (5' 7 ) 12/08/2024 9:00 PM EDT Body Mass Index 35.08 12/08/2024 9:00 PM EDT Plan of Treatment Upcoming Encounters Date Type Department Care Team (Late st Contact Info) Description 06/05/2025 2:40 PM EST Consult Gastroenterology - [address] [facility] [address] [place] [phone] Rosangela Abbott NP [address] [facility] [address] [place] [address] Health Maintenance Due Date Last Done Comments HIV Screening 03/21/2022 Social Influencers of Health Screening 03/21/2022 DTaP,Tdap,and Td Vaccines (7 - Td or Tdap) 06/22/2022 06/22/2012, 02/26/2006, 07/02/2004, Additional history exists Depression Screening 04/12/2024 07/26/2023 COVID-19 Vaccine ( - season) 2024 11/05/2020, 10/15/2020 Influenza Vaccine (#1) 2024 , 02/16/2017, 01/09/2014, Additional history exists Cholesterol Screening (Lipid Panel) 01/03/2030 01/03/2025, 01/03/2025, 09/14/2024, Additional history exists RSV Immunization Adult Patients (1 - 1-dose 75+ series) 2075 Pneumococcal Vaccine: Pediatrics (0 to 5 Years) and At-Risk Patients (6 to 49 Years) Aged Out 2000, 2000, 2000 No longer eligible based on patient's age to complete this topic Hepatitis B Vaccines Completed 08/01/2001, 2000, 2000 HIB Vaccines Completed 08/02/2001, 07/12, 2000, Additional history exists IPV Vaccines Completed 07/02/2004, 07/12, 2000, Additional history exists MMR Vaccines Completed 07/02/2004, 05/03/2001 Varicella Vaccines Completed 05/25/2008, 08/02/2001 Hepatitis A Vaccines Discontinued 06/22/2012, 09/24/19 11 HPV Vaccines Completed 03/13/2016, 12/13, 06/22/2012 Meningococcal ACWY Vaccine Completed 04/21/2017, Hepatitis C Screening Completed 01/03/2025, 024 Meningococcal B Vaccine Aged Out No l onger eligible based on patient's age to complete this topic RSV Immunization Patients Under 20 months Aged Out No longer eligible based on patient's age to complete this topic Procedures Procedure Name Priority Date/Time Associated Diagnosis Comments LIPID PANEL WITH REFLEX TO DIRECT LDL Routine 09/14/2024 11:05 AM EDT Prediabetes Metabolic dysfunction-associa maria elena steatotic liver disease (MASLD) DEPRESSION SCREENING Routine 07/26/2023 from Last 3 Months or Most Recently Relevant to Health Maintenance Results * Depression Screening (07/26/2023) Depression Screening Abstracted us Historical Provider MD HEALTH MAINTENANCE Final Result from Last 3 Months or Most Recently Relevant to Health Maintenance Insurance MEDICAID - [place] Care Teams Dry Paste Supervisor Relationship Specialty Start Date End Date Marii Campos PA [address] [place] [phone] PCP - General Physician Rug Backing Stenciler 01/01/25
== END 2025-02-13 15:56 | disposition home or self-care (01) ==
LOC: HO.HMCHD 15:28
PROVIDERS: PCP Physician Assistant Medical; Visit Provider Physician Assistant Medical
DX: K21.9 Gastro-esophageal reflux disease without esophagitis (principal); E01.0 Iodine-deficiency related diffuse (endemic) goiter; J30.9 Allergic rhinitis, unspecified; F33.0 Major depressive disorder, recurrent, mild; F41.9 Anxiety disorder, unspecified; E66.9 Obesity, unspecified

== ENCOUNTER 2025-02-13 15:27 | Outpatient (REF) | payer OTHER, SELFPAY ==
[2025-02-13 17:11] LABS: Hematocrit 45.5 % (42.0-52.0); Hemoglobin 15.2 g/dl (14.0-18.0); Mean Corpuscular HGB Conc 33.4 g/dl (31.0-36.0); Mean Corpuscular Hemoglobin 27.8 pg (27.0-33.0); Mean Corpuscular Volume 83.2 fL (80.0-98.0); NRBC Abs Auto 0.000 X10*3/uL (0.0-0.012); NRBC Pct Auto 0.0 /100WBC (0.0-0.2); Platelet Count 343 X10*3/uL (160-400); Red Blood Count 5.47 X10*6/uL (4.60-5.80); White Blood Count 12.3 X10*3/uL (4.8-10.8)
[2025-02-13 17:43] LABS: Alanine Aminotransferase 68 U/L (0-40); Albumin Level 5.0 g/dL (3.5-5.0); Alkaline Phosphatase 73 U/L (39-117); Anion Gap 12 (12-20); Aspartate Amino Transferase 26 U/L (5-37); Blood Urea Nitrogen 10 mg/dL (9-16); Calcium 9.5 mg/dL (8.4-10.2); Carbon Dioxide 26 mmol/L (22-29); Chloride 109 mmol/L (96-108); Estimated Glomerular Filt Rate > 60; Potassium 3.6 mmol/L (3.3-5.1); Sodium 143 mmol/L (135-145); Total Protein 7.9 g/dL (6.5-8.0)
== END 2025-02-13 15:28 | disposition home or self-care (01) ==
LOC: HO.LAB 15:27
PROVIDERS: PCP Physician Assistant Medical; Visit Provider Physician Assistant Medical
DX: K21.9 Gastro-esophageal reflux disease without esophagitis (principal); E01.0 Iodine-deficiency related diffuse (endemic) goiter; J30.9 Allergic rhinitis, unspecified; F33.0 Major depressive disorder, recurrent, mild; F41.9 Anxiety disorder, unspecified; E66.9 Obesity, unspecified; R10.9 Unspecified abdominal pain; J02.9 Acute pharyngitis, unspecified; Z91.09 Other allergy status, other than to drugs and biological substances; Z68.31 Body mass index [BMI] 31.0-31.9, adult
CPT/HCPCS: 36415; 80053; 84443; 85027

== ENCOUNTER 2025-03-20 15:23 | Outpatient (AMB) | payer OTHER, SELFPAY ==
[2025-03-20 15:29] VITALS: BP 120/76; PULSE 86; TEMP 36.6; O2SAT 99; BMI 31.8
--- NOTE | 2025-03-20 15:29 | MHC.PC.OV ---
Vital Signs 03/20/25 15:29 Height 5 ft 8 in Weight 209 lb BMI 31.8 BP 120/76 Blood Pressure Location Lt brachial Position Sitting Pulse 86 Pulse Source Pulse Oximeter Temp 97.9 F Temp Source Temporal Artery Scan Pulse Oximetry (%) 99 Oxygen Delivery Method Room Air Intake Visit Reasons: 6 Week F/U DX Sore Throat Spider Assembler Required: No Accompanied by: Self / Same As Patient Allergies No Known Allergies Allergy (Verified 03/20/25 15:30) Medication List - Last Reconciled 03/21/25 by MIKEY Oneill famotidine 20 mg PO BID PRN levocetirizine 5 mg PO DAILY nystatin 100,000 units PO TID 5 days pantoprazole 40 mg PO DAILY Tobacco use date assessed: 03/20/25 Dental Screening Dental Screen Date: 03/20/25 Did you have a dental visit in the last 12 months?: Yes Did you have a dental problem in the last 6 months where you did not have access to dental care?: No HPI HPI Comments History of Present Illness Details History of Present Illness The patient is a 24 year old male with GERD, MDD/Anxiety, AR adn obesity presenting for follow-up on gastrointestinal symptoms and newly developed throat, skin, and cardiac concerns. He reports that his throat symptoms, presumed to be from acid reflux, have improved and are now less frequent, occurring primarily after eating irritating foods like extremely fatty, greasy, or heavy meals. He has been experiencing constipation, which he attributes to his medications, but notes more frequent bowel movements recently. He reports new dermatological symptoms, noting his skin has been extremely dry with red patches that previously appeared on his ear spreading to his knees, hands, and wrists. These patches are intermittent, itchy with pressure, and can be triggered by going outside. Patches also appeared in the gluteal cleft, which responded temporarily to Aquaphor. For the past three days, the patient has had a painful ulcer on the left side of the back of his throat. He also described changes to his tongue after having hand, foot, and mouth disease in January and taking antibiotics for a spider bite; his tongue has a white coating and ridges, and it cuts easily. Since June, he has experienced a constantly high heart rate, except when lying down. He sometimes experiences intense cardiac pain and gets dizzy if he stands up too fast. Medical History: - Hand, foot, and mouth disease in January. - Spider bite treated with antibiotics. - Cold allergy. - Anxiety and stress. Medications: - Unspecified pills causing constipation. Health Maintenance - Thyroid ultrasound scheduled for the . Social History - Diet: Avoids spicy food, but eats extremely fatty, greasy food and heavy meals which irritate his throat. Results - Labs: Recent lab work was noted to be good, with the exception of a single, slightly elevated liver function test. Patient was informed and verbally consented to the use of an ambient scribe for clinic note documentation during this visit. FORMERLY [facility], [facility] Medical History (Updated 03/20/25 @ 16:08 by MIKEY Oneill) Abdominal pain Allergic rhinitis Anxiety GERD (gastroesophageal reflux disease) MDD (major depressive disorder), recurrent episode, mild Obesity (BMI 30.0-34.9) Palpitations Spider bite Thyromegaly Urticaria Family History Mother No problems noted. Father No problems noted. Social History Housing: House Patient Tobacco Use Status: Never used Tobacco e-Cigarette/Vaping Use: Never Used service: No Current occupational status: unemployed Cognitive needs: No Hearing needs: No Vision needs: No Questionnaire Thrive Questionnaire Date Thrive assessed: 02/13/25 AUDIT C Alcohol Use Questionnaire (AUDIT-C) 2. How many drinks containing alcohol do you have on a typical day when you are drinking?: 1 or 2 3. How often do you have six or more drinks on one occasion?: Never Total Score: 0 LINDSAY-7 AMB Questionnaire LINDSAY-7 Date LINDSAY - 7 assessed: 02/13/25 Source: Developed by Drs. Otis Palmer, Peggy Kaminski, Panchito Ventura and colleagues, with an educational eliot from [employer]. Review of Systems Narrative Review of Systems - Constitutional: Denies fever. - HEENT: Reports throat irritation triggered by certain foods, an ulcer in the back of his throat for 3 days, and a white, ridged tongue that cuts easily. Denies issues with ears. - Integumentary: Reports extremely dry skin and red, itchy patches on his knees, hands, wrists, and gluteal cleft that come and go. - Cardiovascular: Reports a constantly high heart rate since June, which is only relieved by lying down, and occasional intense heart pain. Denies symptoms of a heart attack. - Gastrointestinal: Reports constipation, though with recent improvement in frequency. Denies other stomach issues. - Neurological: Reports occasional dizziness upon standing up too fast. - Psychological: Reports anxiety and stress. Physical exam (Primary Care) Vital Signs: Last Vital Signs Temp 97.9 F 03/20/25 15:29 Pulse 86 03/20/25 15:29 BP 120/76 03/20/25 15:29 Pulse Ox 99 03/20/25 15:29 Oxygen Delivery Method Room Air 03/20/25 15:29 BMI result Body Mass Index 31.8 GENERAL Well developed, obese, in no apparent distress HEENT Head-Normocephalic Eyes- PERRLA, EOMI, Conjuctiva clear, lids WNL Ears- Canals clear, TMs WNL Mouth/Throat-An aphthous ulcer is visible on the left posterior pharynx; tongue appears irritated with minimal exudate that scrapes off. Neck- Supple, No lymphadenopathy, thyroid WNL RESPIRATORY Normal I:E, Clear to auscultation CARDIOVASCULAR Regular, rate and rhythm, No murmurs or rubs GASTROINTESTINAL Soft, nontender, normal bowel sounds, no masses SKIN no rash at this time NEUROLOGICAL Gait normal PSYCHIATRIC Oriented to person, place and time Mood and affect WNL Appearance WNL Speech WNL Thought processes WNL Tobacco/Smoking Status: Tobacco use Status Tobacco use date assessed 03/20/25 03/20/25 15:34 Patient Tobacco Use Status Never used Tobacco 03/20/25 15:34 e-Cigarette/Vaping Use Never Used 03/20/25 15:34 Thrive Assessment: Date of Thrive Assessment Date Thrive assessed 02/13/25 03/20/25 15:34 Coding Level of Care Code Established Pt Est Pt Level 4 (98006) Established Pt Add On Problem Visit Only Patient Type Established Diagnoses Palpitations R00.2 Thyromegaly E01.0 Gastroesophageal reflux disease without esophagitis K21.9 Esophagitis presence: without esophagitis Aphthous ulcer K12.0 Thrush B37.0 Rash R21 Time Spent (min) 35 Comment Time spent on chart/lab review, H&P, Patient education and orders. Assessment & Plan Assessment & Plan (1) Palpitations: Code(s): R00.2 - Palpitations Category: Medical Plan: Will get Holter monitor and echocardiogram (2) Thyromegaly: Code(s): E01.0 - Iodine-deficiency related diffuse (endemic) goiter Category: Medical Plan: Patient to have UA on 04/02 (3) GERD (gastroesophageal reflux disease): Code(s): K21.9 - Gastro-esophageal reflux disease without esophagitis Category: Medical Qualifiers: Esophagitis presence: without esophagitis Qualified Code(s): K21.9 - Gastro-esophageal reflux disease without esophagitis Plan: Improved. (4) Aphthous ulcer: Code(s): K12.0 - Recurrent oral aphthae Plan: Patient reassured. Will watch for now. (5) Thrush: Code(s): B37.0 - Candidal stomatitis Plan: Will treat with Nystatin (6) Rash: Code(s): R21 - Rash and other nonspecific skin eruption Plan: Will refer to Dermatology Plan Plan Patient was informed and verbally consented to the use of an ambient scribe for clinic note documentation during this visit. 1. Tachycardia The patient reports a persistently high heart rate and dizziness, which could be related to POTS. To further evaluate the structure and electrical activity of the heart, a referral will be placed for an echocardiogram and a 2-day Holter monitor. Cardiology will contact the patient to schedule these tests. 2. Dermatitis The patient describes intermittent, itchy red patches on his skin, which may be related to dry air or allergies. A referral will be made to Dermatology for further evaluation. 3. Suspected Oral Thrush Following a recent course of antibiotics, the patient developed a white, ridged coating on his tongue. Although examination does not show significant scraping, oral thrush is suspected. A prescription for a liquid antifungal will be sent to the patient's pharmacy, to be used for five days to clear the infection. 4. Viral Pharyngitis The patient has had a painful throat ulcer for three days, identified on exam as a viral aphthous ulcer likely caused by a Coxsackievirus. The patient is advised to avoid acidic foods that may irritate it, and it is expected to resolve in about five days. If it does not resolve, he should call back for further management options. 5. Suspected Thyroid Disorder There is a concern that a thyroid issue may be contributing to the patient's throat symptoms. The patient is advised to keep his upcoming thyroid ultrasound appointment on the for further evaluation. 6. Elevated Liver Function Test Recent lab work showed a slightly elevated liver function test, which is not clinically concerning at this time as other liver functions were normal. This will be rechecked in six months. 7. Follow-Up A follow-up appointment will be scheduled in two months to review test results and the patient's progress. Discussion Notes I discussed my assessment with the patient. I explained that the ulcer in his throat appears to be a viral aphthous ulcer which should resolve on its own in about five days, and advised him to avoid acidic foods to prevent irritation. Regarding his tongue changes, I suspect oral thrush due to his recent antibiotic use and will prescribe a liquid antifungal. For his skin issues, a referral to dermatology is warranted for expert opinion. To investigate his cardiac symptoms of high heart rate and dizziness, I have ordered an echocardiogram and a 2-day Holter monitor to be arranged by Cardiology. I emphasized the importance of keeping his scheduled thyroid ultrasound. We will recheck his labs in six months to monitor the slightly elevated liver enzyme. A follow-up appointment is scheduled in two months to review all results. Patient Instructions - For your throat ulcer, avoid acidic foods like orange juice and tomato. It should go away in about five days. If not, please call us back. - You will receive a liquid medication for the white coating on your tongue. Swish it in your mouth a couple of times a day for about five days. You can either spit it out or swallow it. - We are referring you to a lambskin trimmer (edge bonder) for your skin rashes. They will call you to schedule an appointment. - We have requested two heart tests for you: a wearable heart monitor (Holter monitor) and an ultrasound of your heart (echocardiogram). The cardiology department will contact you to schedule these tests. - Please keep your appointment for the thyroid ultrasound on the . - Your prescription has been sent to the [facility] pharmacy in [facility]. Please allow about an hour for it to be ready. - We have scheduled a follow-up appointment for you in two months to review everything. Orders: Orders ECG holter monitor 48 hour 03/20/25 R00.2 - Palpitations CA echo transthoracic complete 03/20/25 R00.2 - Palpitations Referrals Dermatology Referral L50.9 - Urticaria, unspecified Medications: New nystatin administer 1/2 of dose in each side of the mouth 100,000 units PO TID 15 mL 0RF 5 days
--- OUTSIDE RECORDS SUMMARY | 2025-03-20 21:56 | XMS_ITS | Clinical Summary ---
Author Organization [facility] [address] [place] [address] [place] [phone] Phone Care Team Providers Care Translator Interpreter Name Role Phone Marii Campos Primary Care Provider [phone] Allergies Active Allergy Reactions Criticality Noted Date [...] Department Care Team Description 01/01/2025 Telephone Gastroenterology [facility] [address] [facility] [address] [facility] [address] [place] [address] Edgar Sanchez MD from Last 3 Months Immunizations Immunization Administration Dates Next Due DTaP (Infanrix) 6wks to less than 7yo ,07/02/2004,2000,09/10,2000 NCvU-HIR-LAL (Pentacel) 2mo to less than 5yo 08/02/2001,2000,2000 [...] Meningococcal MCV4P 04/21/2017 Meningococcal, Unspecified 06/22/2012 Novel [id number] 02/22/2009 Pfizer SARS-CoV-2 COVID-19, mRNA, LNP-S, preservative [...] on file Sexual Orientation Not on file Last Filed Vital Signs Vital Sign Reading [...] EST Consult Gastroenterology - [address] [address] [place] [address] Rosangela Abbott, TROMMEL TENDER [address] [facility] [address] [place] [address] Health Maintenance Due Date Last Done Comments HIV Screening 03/21/2022 Social Influencers of Health Screening 03/21/2022 DTaP,Tdap,and Td Vaccines (7 - Td or Tdap) 06/22/2022 06/22/2012, 02/26/2006, 07/02/2004, Additional history exists Depression Screening 04/12/2024 07/26/2023 COVID-19 Vaccine ( season) 2024 11/05/2020, 10/15/2020 Influenza Vaccine (#1) [...] (07/26/2023) Depression Screening Abstracted us Historical Provider HEALTH MAINTENANCE Final Result from Last 3 Months or Most Recently Relevant to Health Maintenance Insurance MEDICAID - [place] Care Teams Translator Interpreter Relationship Specialty Start Date End Date Marii Campos PA [facility] [place] [phone] PCP - General Physician Telecommunications Clerk 01/01/25
== END 2025-03-20 16:07 | disposition home or self-care (01) ==
LOC: HO.HMCHD 15:24
PROVIDERS: PCP Physician Assistant Medical; Visit Provider Physician Assistant Medical
DX: R00.2 Palpitations (principal); E01.0 Iodine-deficiency related diffuse (endemic) goiter; K21.9 Gastro-esophageal reflux disease without esophagitis; K12.0 Recurrent oral aphthae; B37.0 Candidal stomatitis; R21 Rash and other nonspecific skin eruption

== ENCOUNTER → 2025-03-20 15:23 | Outpatient (BNVA) | payer OTHER, SELFPAY | PROVIDERS: PCP Physician Assistant Medical; Visit Provider Physician Assistant Medical | DX: R00.2 Palpitations (principal); K21.9 Gastro-esophageal reflux disease without esophagitis; E01.0 Iodine-deficiency related diffuse (endemic) goiter; K12.0 Recurrent oral aphthae; B37.0 Candidal stomatitis; R21 Rash and other nonspecific skin eruption | CPT/HCPCS: 99212 ==

== ENCOUNTER 2025-04-02 14:53 | Outpatient (REF) | payer OTHER, SELFPAY ==
--- NOTE | ~2025-04-02 | US_ITS ---
EXAMINATION: US THYROID HISTORY: E01.0 - Iodine-deficiency related diffuse (endemic) goiter TECHNIQUE: Real-time grayscale ultrasound imaging was performed and images were reviewed. COMPARISON: There are no prior studies available for comparison. FINDINGS: SIZE: The right thyroid lobe measures 6.0 x 1.9 x 1.8 cm. The left thyroid lobe measures 6.0 x 1.4 x 1.7 cm. The isthmus measures 4 mm. FLOW: Flow to the gland is normal. ECHOGENICITY: The echotexture of the gland is homogeneous. NODULES: No nodules are identified. US/US thyroid IMPRESSION: Unremarkable thyroid ultrasound. ACR TI-RADS Guidelines TR1 (0 points): Benign. No follow-up or biopsy required TR2 (2 points): Not Suspicious. No biopsy or follow up indicated TR3 (3 points): Mildly Suspicious. FNA if >= 2.5 cm, Follow if >= 1.5 cm TR4 (4-6 points): Moderately Suspicious. FNA if >= 1.5 cm, Follow if >= 1.0 cm TR5 (>=7 points): Highly Suspicious. FNA if >= 1.0 cm, Follow if >= 0.5 cm Electronically signed by: Otis Marshall MD 04/02/2025 03:26 PM [facility]
--- OUTSIDE RECORDS SUMMARY | 2025-04-02 18:07 | XMS_ITS | Clinical Summary ---
Author Organization [facility] [address] [place] [address] [place] [phone] Phone Care Team Providers Care Steam Table Worker Name Role Phone Marii Campos Primary Care Provider [phone] Allergies Active Allergy Reactions Criticality Noted Date [...] Department Care Team Description 01/01/2025 Telephone Gastroenterology [facility] [address] [facility] [address] [facility] [address] [place] [address] Edgar Sanchez MD from Last 3 Months Immunizations Immunization Administration Dates Next Due DTaP (Infanrix) 6wks to less than 7yo ,07/02/2004,2000,09/10,2000 [id number]-AST-[id number] (Pentacel) 2mo to less than 5yo 08/02/2001,2000,2000 [...] Meningococcal MCV4P 04/21/2017 Meningococcal, Unspecified 06/22/2012 Novel [id number] 02/22/2009 Pfizer SARS-CoV-2 COVID-19, mRNA, LNP-S, preservative [...] EST Consult Gastroenterology - [address] [facility] [address] [place] [address] Rosangela Abbott, HIGHWAY ENGINEERING TEACHER [address] [facility] [address] [place] [address] Health Maintenance Due Date Last Done Comments [...] Relevant to Health Maintenance Insurance [place]ICA[place] Care Teams Steam Table Worker Relationship Specialty Start Date End Date Marii Campos PA [facility] [place] [phone] PCP - General Physician Nitric Acid Plant Operator 01/01/25
== END 2025-04-02 14:54 ==
LOC: HO.US 14:53
PROVIDERS: PCP Physician Assistant Medical; Visit Provider Physician Assistant Medical
DX: E01.0 Iodine-deficiency related diffuse (endemic) goiter (principal)
CPT/HCPCS: 76536

== ENCOUNTER → 2025-04-02 14:55 | Outpatient (BNV) | payer OTHER, SELFPAY | PROVIDERS: PCP Physician Assistant Medical; Visit Provider Radiology Diagnostic Radiology | DX: E01.0 Iodine-deficiency related diffuse (endemic) goiter (principal) | CPT/HCPCS: 76536 ==